=== PATIENT | male | born 1980 | race Caucasian/White ===

== ENCOUNTER 2017-10-28 20:58 | Emergency (ER) | payer OTHER ==
[~2017-10-28] VITALS: Ht 193 cm; Wt 117.9 kg
[2017-10-28] MEDS ORDERED: OMEPRAZOLE20 M2 PO (21:02)
[2017-10-28] MEDS ORDERED: TRIUMEQ TABLET1 EACH PO (21:02)
[2017-10-28] MEDS ORDERED: IBU800 MG PO (22:09)
[2017-10-28 22:15] VITALS: BP 132/84
== END 2017-10-28 22:16 | disposition home or self-care (01) ==
LOC: M.ERS 20:58
DX: S86.811A Strain of other muscle(s) and tendon(s) at lower leg level, right leg, initial encounter (principal); X50.1XXA Overexertion from prolonged static or awkward postures, initial encounter; Y93.89 Activity, other specified; Y92.89 Other specified places as the place of occurrence of the external cause; Y99.8 Other external cause status